=== PATIENT | male | born 1955 | race Caucasian/White ===

== ENCOUNTER 2016-09-12 17:33 | Inpatient (IN) | payer OTHER ==
--- NOTE | ~2016-09-12 | CT2 ---
[facility] A Service of [facility] RADIOLOGY TEXT RESULTS PATIENT: BRIT BARRETO LOCATION: A 217-01 : 59 UNIT #: [id number] AGE: [address]: Pascual Dawn MD SEX: M ORDER DR: [id number] [facility] [address] [place], [place] [address] [id number] MR#: [id number] Acc #: [id number] NAME: BRIT BARRETO : 1955 SEX: M STUDY DATE/TIME: 09/12/2016 20:32 UNIT: C2A ROOM: [facility] STUDY DESCRIPTION: CT Abd and Pelv W Cont Attending Physician: Pascual Dawn M.D. Ordering Physician: Cristian Keyes M.D. Primary Care Physician: Derek Capellan M.D. MEDICAL IMAGING REPORT This report is preliminary unless electronic signature is present EXAM CT abdomen and pelvis with oral and IV contrast HISTORY Abdomen pain, weakness, right lower quadrant pain for 5 days. Fever. TECHNIQUE This CT examination was performed with one or more of the following radiation dose reduction techniques: automatic exposure control, adjustment of mA and/or kV according to patient size, and iterative reconstruction. FINDINGS CT abdomen and pelvis was performed with oral and IV contrast. CT ABDOMEN: Diffuse fatty infiltration of the liver. The gallbladder, spleen, pancreas, kidneys, and right adrenal gland are normal. Left adrenal adenoma measures 2 cm. There is a small amount of free air in the left anterior abdomen and multiple adjacent air bubbles and a small amount of associated fluid in the left mid abdomen medial to the descending colon, and associated fat stranding, but no drainable fluid collection. Findings are suspicious for perforated diverticulitis in the mid descending colon, given the adjacent colonic diverticula, but there is only borderline associated wall thickening of the mid descending colon. No bowel dilatation. CT PELVIS: No pelvic mass or free fluid. No bowel dilatation. Stimulator power pack over the left buttock, with lead extending into the left sacrum. Postop changes in the right groin. IMPRESSION 1. Small amount of free air and adjacent fluid and fat stranding in the [facility] A Service of [facility] RADIOLOGY TEXT RESULTS PATIENT: BRIT BARRETO LOCATION: C2A 217-01 : 59 UNIT #: [id number] AGE: [address]: Pascual Dawn MD SEX: M ORDER DR: left mid abdomen adjacent to the mid descending colon extending over a craniocaudal dimension of nearly 10 cm, with stranding extending up to the mid descending colon. Findings are concerning for perforated diverticulitis but there is only minimal adjacent wall thickening of the mid descending colon and only several diverticula in the mid descending colon. No free air or free fluid in the remainder of the abdomen or pelvis and no drainable fluid collection. 2. No acute findings in the remainder of the study. Dictated by... Jhoan Buchanan M.D. THIS IS AN ELECTRONICALLY VERIFIED REPORT Jhoan Buchanan M.D. at 09/13/2016 2:41 PM EFREN/carlie TD: 09/13/2016 10:53 JOB #: [id number] MEDICAL IMAGING REPORT Page 1 of 1 COPY
--- NOTE | ~2016-09-12 | DS ---
Unit #: [id number] #: [id number] Patient: BRIT BARRETO [id number] [address] [place], [place] [address] [id number] MR#: [id number] NAME: BRIT BARRETO ROOM: 217 Age: 60 Sex: M Admission Date: 09/12/2016 : 1955 Discharge Date: 09/17/2016 Attending Physician: Pascual Dawn M.D. Primary Care Physician: Derek Capellan M.D. 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 ADMITTING DIAGNOSIS Acute diverticulitis with microperforation. DISCHARGE DIAGNOSIS Acute diverticulitis with microperforation. PROCEDURE PERFORMED None. BRIEF HOSPITAL COURSE This is a 60-year-old gentleman who presented with what looked like acute diverticulitis with microperforation. He has a complex history of rectal surgery for incontinence. 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 He was admitted and started on IV antibiotics and had rapid improvement in his abdominal symptoms. His blood count had decreased and he was slowly advanced to liquids and a low residue diet. Prior to discharge he had no abdominal pain and was having his baseline GI function. DISPOSITION Discharge to home. DISCHARGE INSTRUCTIONS I will send him home on Levaquin and Flagyl for a course of seven days. Under normal circumstanced we would arrange for outpatient colonoscopy but given his history of complex rectal reconstruction I may have him followup with the colorectal surgeons at [facility]. All of this has been explained to him and he has been instructed to notify us if he has any worsening abdominal pain or recurrent fevers. Dictated by... Arslan Rubio III, M.D. VCL/luly TD: 09/17/2016 09:39 JOB #: [id number] Unit #: [id number] #: [id number] Patient: BRIT BARRETO DISCHARGE SUMMARY Page 1 of 1 X Arslan Rubio III, MD DISCHARGE SUMMARY
--- NOTE | ~2016-09-12 | HP ---
Unit #: [id number] #: [id number] Patient: BRIT KATZ [id number] [address] [place], [place] [address] [id number] MR#: [id number] NAME: BRIT KATZ ROOM: 217 Age: 60 Sex: M Admission Date: 09/12/2016 : 1955 Attending Physician: Pascual Dawn M.D. Primary Care Physician: Derek Capellan M.D. HISTORY AND PHYSICAL Mr. Katz is a 60-year-old white male who presented with abdominal pain, left sided, with fever and joint pain for the last four to five days. He was admitted, thought he had stomach flu. However, on CT scan it shows what appears to be perforated diverticulitis with free air in the left mid abdomen with stranding but no drainable abscess and no free air under the diaphragms. PAST MEDICAL HISTORY Significant. He has had a history of asthma and hypertension. He denies any other cardiovascular, renal or metabolic issues. ALLERGIES He has no drug allergies. MEDICATIONS He is on medications to include: 1. Vitamin D3. 2. Multivitamins. 3. Metoprolol. 4. Meloxicam. PAST SURGICAL HISTORY He also has previous surgery to include: 1. Multiple rectal operations for anal incontinence including a rectal stimulator implant. 2. He has had umbilical hernia surgery. 3. He has had some surgery orthopedic rodriguez on his wrist. SOCIAL HISTORY He does drink alcohol but is a nonsmoker. No illicit drug use. REVIEW OF SYSTEMS Otherwise noncontributory. PHYSICAL EXAMINATION GENERAL: Cooperative, alert white male. VITAL SIGNS: Temperature 99, pulse 95, respirations 15, blood pressure 130/70. ENT: Clear. There is no jaundice. However, he does have injected sclerae. CHEST: Clear to auscultation and percussion. NECK: Supple. No masses, no tenderness. CARDIAC: Rhythm is regular. No murmurs. ABDOMEN: Nondistended, soft in most quadrants except in the left lower Unit #: [id number] #: [id number] Patient: BRIT KATZ quadrant and left flank. There is 2 to 3+ tenderness with some guarding and rebound tenderness. RECTAL EXAM: Not performed since he does have rectal surgery multiple times. EXTREMITIES: Full range of motion. 1-2+ peripheral pulses bilaterally. No edema. IMPRESSION Perforated diverticulitis on CT scan: No drainable abscess but there is some free air in the left side. Will discuss with Dr. Dawn. Will increase antibiotic coverage. The patient may or may not need surgical intervention as explained to him. Dictated by Bandar Schaefer/ginette TD: 09/13/2016 11:35 JOB #: [id number] HISTORY AND PHYSICAL Page 1 of 1 X Arian Townsend MD X HISTORY AND PHYSICAL
--- NOTE | ~2016-09-12 | EKG ---
PATIENT: BRIT BARRETO UNIT #: [id number] Ventricular Rate: 73 BPM Atrial Rate: 73 BPM P-R Interval: 162 ms QRS Duration: 104 ms Q-T Interval: 406 ms QTC Calculation(Bezet): 447 ms P [place]: 34 degrees Calculated R [place]: 12 degrees Calculated T [place]: 15 degrees Diagnosis Line: Normal sinus rhythm Diagnosis Line: Normal ECG Diagnosis Line: No previous ECGs available Diagnosis Line: Confirmed by ART CALDWELL MD ([id number]) on 09/14/2016 Diagnosis Line: 5:44:58 AM INTERPRETING MD: PAULETTE BHATIA
[~2016-09-12 17:33] MED LIST: GLYCOPYRROLATE1 MG PO; LEVAQUIN PO; LISINOPRIL PO; LISINOPRIL10 MG PO; LORTAB 10-5001 EACH PO; MOBIC PO; OMEPRAZOLE20 M2 PO; OXYCONTIN20 MG PO; RAPAFLO8 MG PO; TOPROL XL PO; VITAMIN C1000 M1 PO; VITAMIN D1000 UNIT PO; [UNRECOGNIZED DRUG - OTHER] TOP
[2016-09-12 19:07] LABS: BASOPHIL# 0.1 X10e3 (0-0.3); BASOPHIL% 0.6 % (0-2.5); EOSINOPHIL# 0.1 X10e3 (0-0.7); EOSINOPHIL% 0.9 % (0.0-7.0); HEMATOCRIT 40.6 % (38.0-50.0); HEMOGLOBIN 13.5 gm/dL (13.0-16.0); LYMPHOCYTE# 1.6 X10e3 (1.0-3.5); LYMPHOCYTE% 11.6 % (17.0-45.0); MEAN CELL VOLUME 91.2 FL (83-96); MEAN CORPUSCULAR HEMOGLOBIN 30.3 PG (28-34); MEAN CORPUSCULAR HGB CONC 33.2 g/dL (30-36); MEAN PLATELET VOLUME 9.7 FL (6.5-11.5); MONOCYTE# 1.3 X10e3 (0-1.0); MONOCYTE% 9.2 % (3.0-12.0); NEUTROPHIL# 10.6 X10e3 (1.5-7.1); NEUTROPHIL% 77.7 % (40-75); PLATELET COUNT 250 X10e3 (140-420); RED BLOOD COUNT 4.45 X10e (3.90-5.60); RED CELL DISTRIBUTION WIDTH 13.3 % (11.0-15.5); WHITE BLOOD COUNT 13.6 X10e3 (4.0-10.5)
[2016-09-12 19:13] LABS: DIFF IND NO
[2016-09-12 19:15] LABS: ALBUMIN SERUM 3.5 g/dL (3.5-5.0); BILIRUBIN, DIRECT 0.4 mg/dL (0.0-0.2); BILIRUBIN,TOTAL 1.4 mg/dL (0.2-2.0); BUN/CREATININE RATIO 23.75; CALCIUM SERUM 8.5 mg/dL (8.4-10.2); CREATININE SERUM 0.8 mg/dL (0.6-1.4); GLOM FILT RATE Estimated 98.5 mL/min (>60); POTASSIUM 3.5 mmol/L (3.5-5.1); PROTEIN TOTAL SERUM 6.9 g/dL (6.0-8.3)
[2016-09-12] MEDS ORDERED: MELOXICAM7.5 MG PO (21:42)
[2016-09-12] MEDS ORDERED: MULTIVITAMINS1 EAC3 PO (21:43)
[2016-09-12] MEDS ORDERED: METOPROLOL SUCC50 MG PO (21:43)
[2016-09-12] MEDS ORDERED: VITAMIN D31000 UNIT PO (21:43)
[2016-09-13 14:02] LABS: BASOPHIL# 0.1 X10e3 (0-0.3); BASOPHIL% 0.7 % (0-2.5); EOSINOPHIL# 0.3 X10e3 (0-0.7); EOSINOPHIL% 2.5 % (0.0-7.0); HEMATOCRIT 39.1 % (38.0-50.0); HEMOGLOBIN 12.9 gm/dL (13.0-16.0); LYMPHOCYTE# 1.5 X10e3 (1.0-3.5); LYMPHOCYTE% 14.9 % (17.0-45.0); MEAN CELL VOLUME 92.2 FL (83-96); MEAN CORPUSCULAR HEMOGLOBIN 30.4 PG (28-34); MEAN PLATELET VOLUME 9.2 FL (6.5-11.5); MONOCYTE% 10.3 % (3.0-12.0); NEUTROPHIL# 7.1 X10e3 (1.5-7.1); NEUTROPHIL% 71.6 % (40-75); PLATELET COUNT 241 X10e3 (140-420); RED BLOOD COUNT 4.24 X10e (3.90-5.60); RED CELL DISTRIBUTION WIDTH 13.4 % (11.0-15.5); WHITE BLOOD COUNT 9.9 X10e3 (4.0-10.5)
[2016-09-13 14:03] LABS: DIFF IND NO
[2016-09-13 14:31] LABS: CALCIUM SERUM 8.2 mg/dL (8.4-10.2); CREATININE SERUM 0.8 mg/dL (0.6-1.4); GLOM FILT RATE Estimated 98.5 mL/min (>60); POTASSIUM 3.6 mmol/L (3.5-5.1)
[2016-09-14 05:02] LABS: HEMATOCRIT 38.4 % (38.0-50.0); HEMOGLOBIN 12.6 gm/dL (13.0-16.0); MEAN CELL VOLUME 93.1 FL (83-96); MEAN CORPUSCULAR HEMOGLOBIN 30.6 PG (28-34); MEAN CORPUSCULAR HGB CONC 32.9 g/dL (30-36); MEAN PLATELET VOLUME 9.1 FL (6.5-11.5); RED BLOOD COUNT 4.12 X10e (3.90-5.60); RED CELL DISTRIBUTION WIDTH 13.5 % (11.0-15.5); WHITE BLOOD COUNT 9.3 X10e3 (4.0-10.5)
[2016-09-14 06:08] LABS: BUN/CREATININE RATIO 18.75; CALCIUM SERUM 8.2 mg/dL (8.4-10.2); CREATININE SERUM 0.8 mg/dL (0.6-1.4); GLOM FILT RATE Estimated 98.5 mL/min (>60); POTASSIUM 3.5 mmol/L (3.5-5.1)
[2016-09-15 05:15] LABS: HEMOGLOBIN 12.4 gm/dL (13.0-16.0); MEAN CELL VOLUME 92.9 FL (83-96); MEAN CORPUSCULAR HEMOGLOBIN 30.3 PG (28-34); MEAN CORPUSCULAR HGB CONC 32.6 g/dL (30-36); MEAN PLATELET VOLUME 9.5 FL (6.5-11.5); RED BLOOD COUNT 4.09 X10e (3.90-5.60); RED CELL DISTRIBUTION WIDTH 13.4 % (11.0-15.5); WHITE BLOOD COUNT 8.8 X10e3 (4.0-10.5)
[2016-09-15 06:25] LABS: CALCIUM SERUM 8.5 mg/dL (8.4-10.2); CREATININE SERUM 0.8 mg/dL (0.6-1.4); GLOM FILT RATE Estimated 98.5 mL/min (>60); POTASSIUM 3.7 mmol/L (3.5-5.1)
[2016-09-17] MEDS ORDERED: FLAGYL PO (08:42)
[2016-09-17] MEDS ORDERED: LEVAQUIN PO (08:42)
== END 2016-09-17 10:24 | disposition home or self-care (01) | DRG 392 ==
LOC: CED 17:33 → CEDOF 21:25 → C2A 21:25 → CEDOF 21:50 → CED 21:50 → C2A 22:29 → CEDOF 22:29 → C2A 09-17 10:24
PROVIDERS: Emergency Medicine; Surgery
DX: K57.20 Diverticulitis of large intestine with perforation and abscess without bleeding (principal); I10 Essential (primary) hypertension; J45.909 Unspecified asthma, uncomplicated; H01.006 Unspecified blepharitis left eye, unspecified eyelid
CPT/HCPCS: 36415; 74177; 80048; 80076; 82150; 83690; 83735; 85025; 85027; 93005; 96360; 99285; C9113; J1170; J1650; J1956; J2270; J2405; J2543; Q9967